=== PATIENT | male | born 1990 | race Caucasian/White ===

== ENCOUNTER → 2020-10-23 16:25 | Outpatient (CLI) | payer OTHER, SELFPAY ==
--- NOTE | 2020-10-23 16:32 | XR_ITS ---
PROCEDURE: XR ANKLE WT BEARING RT MIN 3V CLINICAL INDICATION: INJURY TO RT FOOT COMPARISON: No exams were available for comparison FINDINGS: Bones: No fracture or dislocation. No lytic or blastic change. There is normal mineralization. Joints: The joint spaces are well-preserved. No significant degenerative/arthritic changes. No erosive changes evident. Other findings:None. IMPRESSION: No acute findings. Dictated by: Say Canas MD 10/23/2020 17:01 Say Canas MD in [place] 10/23/2020 17:01
--- NOTE | 2020-10-23 16:32 | XR_ITS ---
PROCEDURE: XR FOOT WT BEARING RT 3V CLINICAL INDICATION: INJURY TO RT FOOT COMPARISON: No exams were available for comparison FINDINGS: There is a nondisplaced fracture involving the midshaft the 3rd metatarsal. There is some overlying callus formation. There is good alignment. The joint spaces are well-preserved. No significant degenerative/arthritic changes. No erosive changes evident. Other findings:None. IMPRESSION: Nondisplaced healing fracture involving the midshaft of the 3rd metatarsal Dictated by: Say Canas MD 10/23/2020 17:02 Say Canas MD in [place] 10/23/2020 17:02
== END ==
PROVIDERS: PCP Physician Assistant; Visit Provider Physician Assistant
DX: S99.921A Unspecified injury of right foot, initial encounter (principal)
CPT/HCPCS: 73610; 73630

== ENCOUNTER 2020-11-01 15:20 | Emergency (ER) | payer OTHER, SELFPAY ==
[2020-11-01 15:21] VITALS: BP 122/74; PULSE 69; RESP 20; TEMP 36.7; O2SAT 100; BMI 38.0
--- NOTE | 2020-11-01 17:47 | HMH.EDUTC ---
[facility] [place] Clinical Impression: Viral syndrome, Exposure to COVID-19 virus Disposition: Home, Self-Care Condition on Discharge: Good Instructions: DI for Viral Syndrome, DI for COVID-19 (Suspected or Confirmed ), Preventing the Spread of Coronavirus Discharge Instructions Additional Instructions: Drink plenty of fluids. Take tylenol or ibuprofen for pain or fever. Take the medications as directed. Follow up with your regular doctor. GO TO THE ER FOR ANY WORSENING SYMPTOMS Quarantine until you know the results of your covid-19 test. If it is positive, the health department should call you and give you further instructions about your length of Quarantine and other things. Notify your school or workplace of your results and follow their instructions regarding return to work/school. Prescriptions: Brompheniramine/Pseudoephed/Dm [Bromfed Dm Cough Syrup] 5 ml PO Q6HP PRN #240 ml PRN Reason: Cough Transmission Status: Received by [facility] Ondansetron [Zofran 4mg ODT] 4 mg PO DAILYP PRN #12 tab PRN Reason: Nausea Transmission Status: Received by [facility] Referrals: Elizabeth Brian PA [Primary Care Provider] - Forms: Work/School Release Time of Disposition: 17:59 Medical Decision Making - Medical Records Medical records reviewed: No: I reviewed the patient's medical records. - Uri Inquiry Pt receiving controlled substance: No Vital Signs: 11/01/20 15:21 11/01/20 18:06 Temperature 98.1 F 98.1 F Temperature Source Oral Pulse Rate 69 Pulse Rate [Left Radial] 69 Respiratory Rate 20 20 Blood Pressure 122/74 Blood Pressure [Right Arm] 122/74 Blood Pressure Mean [Right Arm] 90 Blood Pressure Source [Right Arm] Automatic Cuff Blood Pressure Position [Right Arm] Sitting 02 Sat by Pulse Oximetry 100 Oxygen Delivery Method Room Air Orders (Tests/Meds): ORDERS Category Date Time Status Covid-19 Nasal PCR ([facility]) Routine Lab 11/01/20 17:30 Received [facility] [place]PI - General Stated complaint: covid test Time Seen by Provider: 11/01/20 17:49 - History of Present Illness Provider Complaint: He states that he has felt bad for the past 2 days. He has ran a fever up to 101. He denies any sore throat. He is coughing but he denies that he is short of breath or having chest pain. - Related Data Previous Rx's Medication Instructions Recorded meloxicam 7.5 mg tablet 7.5 mg PO DAILY 30 Days #30 tab 10/28/20 methylprednisolone 4 mg tablets in 4 mg PO PER PKG DIR #21 tab 10/28/20 a dose pack Brompheniramine/Pseudoephed/Dm 5 ml PO Q6HP PRN #240 ml 11/01/20 [Bromfed Dm Cough Syrup] Ondansetron [Zofran 4mg ODT] 4 mg PO DAILYP PRN #12 tab 11/01/20 Allergies Allergy/AdvReac Type Severity Reaction Status Date / Time No Known Allergies Allergy Verified 10/28/20 10:48 [facility] History - Hepatitis A Screen Attestation statement:: This patient has been screened for Hepatitis A risk factors. I have reviewed the patient's past medical history: Yes Medical History: Reports:: Asthma Laterality Cases: Bilateral: Myringotomy (Ear Tubes), Tonsillectomy Comment: right shoulder x 10 years ago. - Social History Smoking Status: Never smoker Alcohol Intake: never Occupational Status: employed ROS Obtained: Yes All systems reviewed & no additional complaints - Constitutional Constitutional: Reports system reviewed and no additional complaints, except as docu - Eyes Eyes: Reports system reviewed and no additional complaints, except as docu - ENT Ears, Nose, Mouth, and Throat: Reports system reviewed and no additional complaints, except as docu - Cardiovascular Cardiovascular: Reports system reviewed and no additional complaints, except as docu - Respiratory Respiratory: Reports system reviewed and no additional complaints, except as docu - Gastrointestinal Gastrointestingal: Reports: system reviewed and no additional complaints, excep
[2020-11-01 18:06] VITALS: BP 122/74; PULSE 69; RESP 20; TEMP 36.7; O2SAT 100
--- NOTE | 2020-11-02 09:07 | PC.NURSE ---
PATIENT NOTIFIED OF POSITIVE COVID TEST AT THIS TIME
== END 2020-11-01 18:07 | disposition home or self-care (01) ==
PROVIDERS: Emergency Provider Nurse Practitioner Family; PCP Physician Assistant
DX: U07.1 COVID-19 (principal); J45.909 Unspecified asthma, uncomplicated
CPT/HCPCS: 99202; G0463; U0003

== ENCOUNTER → 2022-02-24 09:33 | Outpatient (CLI) | payer OTHER, SELFPAY | PROVIDERS: PCP Family Medicine; Visit Provider Family Medicine | DX: R00.2 Palpitations (principal) | CPT/HCPCS: 93225; 93226 ==

== ENCOUNTER → 2022-03-19 13:59 | Outpatient (CLI) | payer BC, SELFPAY ==
--- NOTE | 2022-03-19 | CA_ITS ---
APPROVED REPORT EXAM: Comprehensive 2D, Doppler, and color-flow Echocardiogram Airline Reservationist: Fallon Hale RT(R) Ht: 5 ft 6 in Wt: 260lbs BSA: 2.24 BP: 139/79 mmHg Indications: SOB, palpitations, obesity 2D Dimensions LVOT 2.11 cm (M/F) 1.5-2.5 LVEF (Sanchez's) 58.50 % M: 52 - 72 LV Volume 94.00 mL M: 62 - 150 LV Volume Index 41.96 mL/m2 M: 34 - 74 LA Volume 21.30 mL LA Volume Index 9.51 mL/m2 (M/F) 16-34 M-Mode Dimensions RVDd 3.01 cm (0.9-2.6) LA Diam 2.90 cm (1.9-4.0) LVDd 4.03 cm (3.5-5.7) Ao Diam 2.73 cm (2.0-3.7) LVDs 3.18 cm (3.5-5.7) IVSd 1.36 cm (0.6-1.1) PWd 1.27 cm (0.6-1.1) EF (Teich) 43.50% FS 21.10% EDV (Teich) 71.30 mL ESV (Teich) 40.30 mL LV Diastology E Decel Time 190.00 (160-240 msec) E/A Ratio 1.1 MED E' 7.80 (< 7 cm/sec) E'/MED E' Ratio 11.18 (>14) LAT E' 11.00 (<10 cm/sec) E/LAT E' Ratio 7.93 (>14) Mitral Valve MV E Max Familia. 87.00 (40-130 cm/s) MV A Velocity 81.00 (40-130 cm/s) E/A Ratio 1.08 MV Decel. Time 190.00 (160-240 ms) MV PHT 56.00 ms Left Ventricle Left atrium is normal size, left ventricle is normal size, estimated ejection fraction 55% with no regional wall motion abnormality, diastolic parameters are inconclusive. Right Ventricle Right atrium and right ventricle are normal size and contractility. Aortic Valve Aortic valve is grossly normal there is no aortic stenosis aortic insufficiency. Mitral Valve Mitral valve is grossly normal, there is trace mitral regurgitation. Tricuspid Valve Tricuspid valve grossly normal, there is trace tricuspid regurgitation, tricuspid regurgitation jet velocity is inadequate for calculation of the right ventricular systolic pressure. Pulmonic Valve Pulmonic valve is poorly visualized. Great Vessels Aortic root is normal size. Inferior vena cava is poorly visualized. Pericardium No significant pericardial effusion noted. Conclusion 1. Technically difficult study because of the patient factors and poor acoustic windows. 2. Normal left ventricular size, estimated ejection fraction 55% with no regional wall motion abnormality, diastolic parameters are inconclusive in the study. 3. No significant pericardial effusion noted. 4. Inferior vena cava is poorly visualized. Electronically signed by : Chandu Ovalle MD 03/20/2022 15:31:38
== END ==
PROVIDERS: PCP Family Medicine; Visit Provider Family Medicine
DX: R06.02 Shortness of breath (principal); R00.2 Palpitations
CPT/HCPCS: 93306

== ENCOUNTER → 2023-01-11 15:00 | Outpatient (CLI) | payer BC, SELFPAY ==
--- NOTE | 2023-01-11 15:06 | XR_ITS ---
FINAL REPORT CLINICAL HISTORY: LT FOOT PAIN, possilbe fracture. COMPARISON: None FINDINGS: LEFT FOOT Three views of the left foot demonstrate a healing transverse fracture of the third metatarsal with bridging callus formation. The visualized joint spaces are normally aligned. The soft tissues are unremarkable. IMPRESSION: Healing transverse fracture of the third metatarsal with bridging callus formation. Reviewed, Interpreted and Dictated by Tate Kaur MD Transcribed by Abbey Silverio Authenticated and . [facility]
== END ==
PROVIDERS: PCP Family Medicine; Visit Provider Family Medicine
DX: M79.672 Pain in left foot (principal)
CPT/HCPCS: 73630

== ENCOUNTER 2024-09-04 10:05 | Outpatient (CLI) | payer OTHER, SELFPAY ==
--- NOTE | 2024-09-04 10:13 | XR_ITS ---
FINAL REPORT CLINICAL HISTORY: .fall wednesday FINDINGS: LEFT ELBOW 3 views were obtained. There is no acute fracture or dislocation. A small osteophyte is seen of the posterior olecranon. Calcification or ossification is seen at the musculotendinous junction at the triceps likely due to old trauma. There is a small exostosis vision 1 cm of the distal humerus. Visualized joint spaces are normally aligned. Soft tissues are unremarkable. IMPRESSION: No acute bony abnormality. Reviewed, Interpreted and Dictated by Tate Kaur MD Transcribed by Dagmar De Los Santos Authenticated and [facility]
--- NOTE | 2024-09-04 10:33 | XR_ITS ---
FINAL REPORT CLINICAL HISTORY: .fall wednesday FINDINGS: LEFT HUMERUS 2 views were obtained. There is no acute fracture or dislocation. A small osteophyte is seen of the posterior olecranon. Calcification or ossification is seen at the musculotendinous junction at the triceps likely due to old trauma. There is a small exostosis vision 1 cm of the distal humerus. Visualized joint spaces are normally aligned. Soft tissues are unremarkable. IMPRESSION: No acute bony abnormality. Reviewed, Interpreted and Dictated by Tate Kaur MD Transcribed by Dagmar De Los Santos Authenticated and [facility]
--- NOTE | 2024-09-04 10:33 | XR_ITS ---
FINAL REPORT CLINICAL HISTORY: .fall wednesday FINDINGS: LEFT FOREARM 2 views were obtained. There is no acute fracture or dislocation. A small osteophyte is seen of the posterior olecranon. Calcification or ossification is seen at the musculotendinous junction at the triceps likely due to old trauma. There is a small exostosis vision 1 cm of the distal humerus. Visualized joint spaces are normally aligned. Soft tissues are unremarkable. IMPRESSION: No acute bony abnormality. Reviewed, Interpreted and Dictated by Tate Kaur MD Transcribed by Dagmar De Los Santos Authenticated and . [facility]
--- NOTE | 2024-09-04 10:33 | XR_ITS ---
FINAL REPORT CLINICAL HISTORY: PAIN fall wednesday FINDINGS: LEFT WRIST 2 views were obtained. There is no acute fracture or dislocation. Visualized joint spaces are normally aligned. Soft tissues are unremarkable. IMPRESSION: No acute bony abnormality. Reviewed, Interpreted and Dictated by Tate Kaur MD Transcribed by Dagmar De Los Santos Authenticated and [facility]
== END 2024-09-04 23:59 | disposition home or self-care (01) ==
LOC: RAD 10:07
PROVIDERS: PCP Family Medicine; Visit Provider Nurse Practitioner Family
DX: M79.602 Pain in left arm (principal)
CPT/HCPCS: 73060; 73080; 73090; 73100